=== PATIENT | male | born 1970 | race Caucasian/White ===

== ENCOUNTER 2017-07-27 06:36 | Day surgery (SDC) | payer BC ==
--- NOTE | 2017-07-27 06:10 | History and Physical Report ---
DATE: 07/26/2017. CHIEF COMPLAINT AND HISTORY OF CHIEF COMPLAINT: This patient presents with a history of an intractable lumbar radiculitis. His diagnostics confirm multiple- level hardware fusion of the lumbar spine with pedicle screw and rods 3-4 to 5- 1 and titanium cages at 4-5 and 5-1. Due to the failure of all therapy, he has been referred to this facility by way of the [facility] for consideration of a spinal opioid infusion system or pump. His treatment history has been extensive. There have been multiple pain clinic treatments at multiple different sites. Medications have been complicated producing side effects. He is currently under psychiatry evaluation and management. PAST MEDICAL HISTORY: Attention deficit hyperactivity disorder, cervical and lumbar spondylosis, posttraumatic stress disorder. PAST SURGICAL HISTORY: Cervical spine fusion, lumbar spine fusion. MEDICATIONS ON ADMISSION: To be provided. ALLERGIES: To be provided. PHYSICAL EXAMINATION: General: Height and weight were not evaluated. Vital Signs: Blood pressure 140/80. Musculoskeletal: Current examination shows diffuse tenderness throughout the lumbar spine. Range of motion is difficult and painful producing bilateral low back and lower extremity extensions of pain. His motor and sensory field function to the lower extremities is somewhat difficult. He has generalized weakness. There are sensory field deficits across the front and back surface of both legs. Ambulation is somewhat antalgic, although no assistive device is currently being utilized. Neurologic: Cranial nerves are intact. IMPRESSION: 1. POSTLUMBAR LAMINECTOMY SYNDROME, ICD-10 CODE M96.1. 2. LUMBAR RADICULITIS, ICD-10 CODE M54.16 AND M54.17. PLAN: The patient is here for an implanted spinal catheter infusion trial with hydromorphone to determine if the implantation of a permanent system can be of any value in pain control. The potential risks, side effects, and complications including nerve root injury, spinal cord injury, and spinal headache have been discussed and reviewed. Information including a CD ROM and written information has been provided to the patient and his for review. This is a manager commission's disclosure which also identifies the potential risks, side effects, and all complications. The patient understands and has consented and will move toward the trial. We will consider the trial outpatient, although an overnight stay will be evaluated. An epidural blood patch will be performed which will require the patient to remain flat for four hours and then slowly elevated for one hour. If at that period of time he is stable and wants to go home, he will be discharged. Otherwise, he will stay in the care of the facility, will be managed overnight, and then discharged in the morning. JOB NUMBER: [id number] cc: Dr. Olegario LIAO
[~2017-07-27 06:36] MED LIST: ACETAMINOPHEN 1,000 MG/100 ML BTL IV ONE; FAMOTIDINE 20MG TABLET PO ONE; HYDROMORPHONE PF 2MG/ML AMP 0.004 MG in 0.9 % SODIUM CHLORIDE 10ML VIA 0.998 ML IV ONE; HYDROMORPHONE PF 2MG/ML AMP 2 MG in 0.9 % SODIUM CHLORIDE 500ML 499 ML IV ONE; MECLIZINE 25 MG TABLET PO ONE; METOCLOPRAMIDE 10 MG TABLET PO ONE; VANCOMYCIN HCL 1,000 MG in DEXTROSE 5 % IN WATER 250 ML IVPB ONE
[2017-07-27] MEDS ORDERED: LIDOCAINE 2% MDV (20MG/ML) 20ML VIAL IV ONE (06:37)
[2017-07-27] MEDS ORDERED: MIDAZOLAM HCL 2MG/2ML VIAL IV ONE (06:37)
[2017-07-27] MEDS ORDERED: FENTANYL PF 100MCG/2ML VIAL IV ONE (06:37)
[2017-07-27] MEDS ORDERED: HYDROMORPHONE HCL 2 MG/ML VIAL IV ONE (06:37)
[2017-07-27] MEDS ORDERED: PROPOFOL 10 MG/ML VIAL IV ONE (06:37)
[2017-07-27] MEDS ORDERED: CEFAZOLIN 1G VIAL IM ONE (06:37)
[2017-07-27] MEDS ORDERED: HYDROMORPHONE HCL 1 MG/ML CPJ IM PRN (10:47)
[2017-07-27] MEDS ORDERED: DIPHENHYDRAMINE HCL IV 50 MG/ML VIAL IVP PRN ×2 (10:47)
[2017-07-27] MEDS ORDERED: METOCLOPRAMIDE HCL 10 MG/2 ML VIAL IVP PRN (10:47)
[2017-07-27] MEDS ORDERED: AL HYDROX/MAG HYDROX 30ML UD PO PRN (10:47)
[2017-07-27] MEDS ORDERED: HYDROCODONE/APAP 7.5/325MG TABLET PO PRN ×2 (10:47)
[2017-07-27] MEDS ORDERED: RINGERS SOLUTION,LACTATED 1,000 ML IV SCH (10:47)
[2017-07-27] MEDS ORDERED: ACETAMINOPHEN 325 MG TAB PO PRN ×2 (10:47)
[2017-07-27] MEDS ORDERED: DIPHENHYDRAMINE HCL 25 MG CAPSULE PO PRN ×2 (10:47)
[2017-07-27] MEDS ORDERED: TEMAZEPAM 15 MG CAPSULE PO PRN ×2 (10:47)
[2017-07-27] MEDS ORDERED: METOCLOPRAMIDE 10 MG TABLET PO PRN (10:47)
[2017-07-27] MEDS ORDERED: OXYCODONE/APAP 10MG-325MG TABLET PO PRN ×2 (10:47)
[2017-07-27] MEDS ORDERED: NALOXONE 0.4 MG/1 ML VIAL IVP PRN (10:47)
[2017-07-27] MEDS ORDERED: SENNOSIDES/DOCUSATE SODIUM UD CAPSULE PO PRN ×2 (10:47)
[2017-07-27] MEDS ORDERED: HYDROMORPHONE HCL 2 MG/ML VIAL IM PRN (10:47)
[2017-07-27] MEDS ORDERED: CARBAMAZEPINE 200 MG PO SCH (10:59)
[2017-07-27] MEDS ORDERED: CHLORPROMAZINE 50 MG PO PRN (11:00)
--- NOTE | 2017-07-27 16:07 | Operative Note - Ferro ---
DATE OF SURGERY: 07/27/17 PREOPERATIVE DIAGNOSES: 1. POST LUMBAR LAMINECTOMY SYNDROME, ICD-10 CODE = M96.1. 2. LUMBAR RADICULITIS, ICD-10 CODE = M54.16 AND M54.17. OPERATION: 1. FLUOROSCOPICALLY-GUIDED ACCESS SPINAL SPACE AT L2-3, PLACEMENT OF THIN- WALLED SPINAL CATHETER T11. 2. DIAGNOSTIC MYELOGRAPHY WITH RADIOLOGIC SUPERVISION AND INTERPRETATION. 3. INCISION, SUBCUTANEOUS DISSECTION, AND ANCHORING OF SPINAL CATHETER TO SUPRASPINOUS FASCIA WITH ANCHORING DEVICE AND NONABSORBABLE SUTURE. 4. INCISION, SUBCUTANEOUS DISSECTION, AND CREATION OF A SUBCUTANEOUS POUCH AT RIGHT POSTERIOR GLUTEAL MARGIN FOR PLACEMENT, EVENTUALLY, OF PUMP. 5. TUNNELING BETWEEN SPINAL CATHETER POUCH AND POSTERIOR GLUTEAL POUCH EXITING SKIN, INTERNAL CATHETER INTERFACED BY WAY OF CONNECTOR TO SECOND CATHETER COMPONENT. SECOND CATHETER TUNNELED SUPERIOR 6 CM EXITING SKIN. 6. INTERFACE EXTERNAL CATHETER TO EXTERNAL INFUSION DEVICE SET TO DELIVER HYDROMORPHONE AT 0.04 MG PER DAY. 7. CLOSURE OF MIDLINE SPINAL CATHETER INCISION, VICRYL FOR FASCIA, AND RUNNING SUBCUTICULAR VICRYL FOR SKIN. CLOSURE OF POSTERIOR GLUTEAL MARGIN INCISION WITH NYLON SUTURE. DRESSINGS PLACED. 8. EPIDURAL BLOOD PATCH L3-4, 20 ML AUTOLOGOUS BLOOD DRAWN STERILE TECHNIQUE LEFT ANTECUBITAL. SURGEON: VISHNU BUSTILLO D.O. ANESTHESIA: LOCAL SEDATION. ANESTHESIA PROVIDER: BECKIE MAIER CRNA. INDICATION: This patient presents with a history of intractable post lumbar laminectomy radiculitis. Diagnostics confirming fusion of the lumbar spine at 4- 5 and 5-1. He is here after the failure of all therapy and for a spinal opioid infusion of Hydromorphone to determine if the implantation of a permanent system can be of any value in pain control. PROCEDURE: Intravenous line, vital sign monitoring, IV sedation, prepped and draped in sterile technique. Under imaging, spinal interspace at L2-3 marked, infiltrated. Using AP and lateral imaging, a 20-gauge spinal needle was inserted into the spinal space. With CSF flow, a thin-walled spinal catheter was advanced and positioned T11. Diagnostic myelography was performed to the catheter. The flow characteristics were appropriate in the space. A bolus of Hydromorphone 0.002 mg then given into the spinal space. The catheter was then clamped, skin above and below the needle was infiltrated, incision made, and subcutaneous dissection was conducted to the supraspinous fascia. The needle was removed and a pursestring suture was placed around the catheter to limit CSF flow out the penetration. The catheter was laid flat on the sterile field. CSF was noted coming from the catheter. The catheter was reclamped. At the right posterior gluteal margin; a site eventually picked by the patient for the pump itself, skin infiltrated, incision made, and subcutaneous dissection was conducted to form a small pouch. A tunneling tool was then used to carry the implanted catheter subcutaneously exiting the posterior gluteal pouch. The spinal catheter was then interfaced by way of a connector with a secondary catheter component. This secondary catheter component was tunneled 6 cm superior from this pouch exiting the skin. The interface between the implanted catheter and the external catheter was then placed deep within the pouch. The external catheter was then interfaced to an external pump set to deliver Hydromorphone at 0.04 mg a day. The midline incision was closed with Vicryl for fascia and running subcuticular Vicryl for skin. The posterior pouch was closed with nylon. Dermabond was placed over the midline, Steri's to the posterior pouch. At L3-4, which was one level below the dural puncture, skin infiltrated and an 18-gauge Tuohy needle with [id number] into the epidural space. Simultaneously, 20 mL of autologous blood drawn sterile technique from the left antecubital. An epidural blood patch was then performed with this blood at this level. Needle removed. The Steri-Strips, OpSite, and Medipore tape were then placed over the sites securing the catheter and all connections under sterile dressing. He was transported to the Recovery Room flat, pillow under head and knees, stable showing no side-effects from the procedure or the sedation. In the Recovery Room, he had normal mobility and functionality of his extremities. There was no indication of abnormalities or complications. He will be monitored until stable, flat for four hours, slowly elevated for one, and then evaluated for possible discharge. If not, overnight stay will be evaluated. All other instructions provided, numbers to contact, problems given. We will evaluate him in the next 24-48 hours at home. He will be scheduled for three possible increases in the clinic; first possibly within two to three days depending upon level of pain control. DISCHARGE INSTRUCTIONS IN THE MORNIN. The sites will remain clean and dry. No showering or bathing in any way that disrupts dressings. If it happens, contact the clinic. 2. Standard medications resumed including Levaquin, the antibiotic, 500 mg once a day for 14 days. 3. Spinal opioid side-effects including respiratory depression, nausea, vomiting , constipation, urinary retention, lightheadedness, or rash have all been discussed and reviewed. Should they take place, he is to contact the clinic or go to a local Emergency Room. 4. The trial will run 14 days. At the end of the 14 day period, we will either implant the device, the permanent pump reservoir, or remove the implanted spinal catheter. All other complications, potential risks, and numbers to contact have been given. cc: Dr. Quique Harmon JOB NUMBER: [id number] MTDD
[2017-07-27] MEDS ORDERED: VANCOMYCIN HCL 1,000 MG in DEXTROSE 5 % IN WATER 250 ML IVPB ONE ×2 (19:20)
[2017-07-27] MEDS ORDERED: OLANZAPINE 5 MG PO SCH (22:00)
--- NOTE | 2017-07-28 09:25 | RADIOLOGY REPORT ---
EXAM: THORACOLUMBAR SPINE, ONE VIEW HISTORY: PAIN PUMP TRIAL. TECHNIQUE: An AP view of the spine was obtained including the lower thoracic and lumbar portions of the spine. Comparison: Intraoperative radiographs of the spine dated 07/27/17 at 08:56. FINDINGS: An interspinal catheter is in place, likely entering the canal at the L3 level. The tip of the catheter projects at the superior aspect of the T12 vertebral body. The catheter extends rightward and inferiorly to the gluteal level. There are mild to moderate degenerative changes throughout the lumbar spine. Fixation hardware is in place with posterior fusion of L4 through S1. IMPRESSION: INTERSPINAL CATHETER IN PLACE, DESCRIBED ABOVE WITH ITS TIP PROJECTING AT THE UPPER T12 VERTEBRAL BODY LEVEL. JOB NUMBER: [id number] MTDD
== END 2017-07-27 16:05 | disposition home or self-care (01) ==
LOC: SUR 06:36 → MEDSURG 10:14 → SUR 16:05
PROVIDERS: ATTEND Pain Medicine Interventional Pain Medicine
DX: M96.1 Postlaminectomy syndrome, not elsewhere classified (principal); M54.16 Radiculopathy, lumbar region; M54.17 Radiculopathy, lumbosacral region; F43.10 Post-traumatic stress disorder, unspecified
CPT/HCPCS: 62350; 00630; 72020; Q9967; J3370; J3010; J1170 ×2; J0690; J7040; J7050; J7060

== ENCOUNTER 2017-08-10 11:04 | Day surgery (SDC) | payer BC ==
--- NOTE | 2017-08-10 05:16 | History and Physical Report ---
DATE: 08/09/2017. CHIEF COMPLAINT AND HISTORY OF CHIEF COMPLAINT: This patient is here with an ongoing implanted spinal catheter infusion trial with hydromorphone. He has achieved up to greater than 75 percent pain control. Due to the failure of all other therapies and the success of the implanted catheter infusion trial with hydromorphone, he is here at his request for implantation of a permanent system. PAST MEDICAL HISTORY: Attention deficit hyperactivity disorder, cervical lumbar spondylosis, posttraumatic stress disorder. PAST SURGICAL HISTORY: Cervical spine fusion, lumbar spine fusion. MEDICATIONS ON ADMISSION: To be provided. ALLERGIES: To be provided. PHYSICAL EXAMINATION: General: Height and weight are not known. Vital Signs: Unavailable. HEENT: Within normal limits. Lungs: Clear. Heart: Regular rate and rhythm. Abdomen: Nontender. Musculoskeletal: Dressings are in place for the implanted spinal catheter infusion trial. The pain pattern is diffuse in the upper and lower extremities. Neurologic: Cranial nerves are intact. IMPRESSION: 1. INTRACTABLE POSTLUMBAR LAMINECTOMY RADICULITIS, ICD-10 CODE M96.1. 2. LUMBAR RADICULITIS, ICD-10 CODE M54.16 AND M54.17. PLAN: The patient is here having completed an implanted catheter infusion trial successfully with 75 to 85 percent pain control. He is here for implantation of a permanent system. We will consider the procedure outpatient, although an overnight stay will be evaluated. JOB NUMBER: [id number] cc: Blake Lawrence M.D. MTDD
[~2017-08-10 11:04] MED LIST changes: +HYDROMORPHONE HCL 0.02 GM in 0.9 % SODIUM CHLORIDE 10ML VIA 20 ML IV ONE; +HYDROMORPHONE HCL/PF 0.002 MG in 0.9 % SODIUM CHLORIDE 10ML VIA 0.998 ML IVP ONE; -HYDROMORPHONE PF 2MG/ML AMP 0.004 MG in 0.9 % SODIUM CHLORIDE 10ML VIA 0.998 ML IV ONE; -HYDROMORPHONE PF 2MG/ML AMP 2 MG in 0.9 % SODIUM CHLORIDE 500ML 499 ML IV ONE; +VANCOMYCIN HCL 1,000 MG in 0.9 % SODIUM CHLORIDE 250ML 250 ML IVPB ONE; -VANCOMYCIN HCL 1,000 MG in DEXTROSE 5 % IN WATER 250 ML IVPB ONE
[2017-08-10] MEDS ORDERED: MIDAZOLAM HCL 2MG/2ML VIAL IV ONE (11:05)
[2017-08-10] MEDS ORDERED: FENTANYL PF 100MCG/2ML VIAL IV ONE (11:05)
[2017-08-10] MEDS ORDERED: CEFAZOLIN 1G VIAL IM ONE (11:05)
[2017-08-10] MEDS ORDERED: BUPIVACAINE 0.75% W/EPI MPF 30ML VIAL IVP ONE (11:05)
[2017-08-10] MEDS ORDERED: LIDOCAINE 1% W/EPI 1:200,000 MPF 30ML SQ ONE (11:05)
[2017-08-10] MEDS ORDERED: PROPOFOL 10 MG/ML VIAL IV ONE (11:05)
[2017-08-10] MEDS ORDERED: LIDOCAINE 2% MDV (20MG/ML) 20ML VIAL IV ONE (11:05)
[2017-08-10] MEDS ORDERED: *PACU ONLY* KETAMINE HCL 10 MG/ML (20ML) VIAL IV ONE (11:05)
--- NOTE | 2017-08-11 08:15 | Operative Note - Ferro ---
DATE OF SURGERY: 08/10/2017. PREOPERATIVE DIAGNOSIS: 1. POSTLUMBAR LAMINECTOMY SYNDROME, ICD-10 CODE M96.1. 2. LUMBAR RADICULITIS, ICD-10 CODE M54.16 AND M54.17. 3. IMPLANTED SPINAL CATHETER INFUSION TRIAL WITH HYDROMORPHONE. POSTOPERATIVE DIAGNOSIS: 1. POSTLUMBAR LAMINECTOMY SYNDROME, ICD-10 CODE M96.1. 2. LUMBAR RADICULITIS, ICD-10 CODE M54.16 AND M54.17. 3. IMPLANTED SPINAL CATHETER INFUSION TRIAL WITH HYDROMORPHONE. OPERATION: 1. Incision, subcutaneous dissection, and removal of external spinal catheter. 2. Revision of internal spinal catheter, interface to second catheter component with connector to interface to pump. 3. Incision, subcutaneous dissection, and creation of subcutaneous pouch at right posterosuperior gluteal margin for placement of pump identified as a Medtronic 20 mL programmable prefilled with hydromorphone 1.0 mg per mL. 4. Placement of the pump into pouch, interfaced with revised catheter, securing pump to posterior fascia using nonabsorbable suture. 5. Placement of 24-gauge Diaz needle into access port for programmable pump. Aspiration and clearing catheter of 1.0 mL of opioids and cerebrospinal fluid mixture. 6. Diagnostic myelography with radiologic supervision and interpretation confirming catheter component functionality. 7. Programming of pump to deliver by continuous infusion hydromorphone at 0.08 mg per day. 8. Closure of incisions with Vicryl for the fascia and running subcuticular Vicryl for the skin. Dermabond closure. SURGEON: Sudhakar Pichardo D.O. ANESTHESIA: Local sedation. ANESTHESIA PROVIDER: Edd Garcia CRNA. INDICATION: This patient presents with a postlaminectomy radiculitis. Due to the failure of all therapy, an implanted spinal catheter infusion trial with hydromorphone was conducted with 75 to 80 percent pain control. The patient is here by his request for full implantation. DESCRIPTION OF PROCEDURE: Intravenous line, vital sign monitoring, and intravenous sedation. Prepped and draped with sterile technique. The patient was positioned prone. All of the dressings were removed. The externalized catheter was clamped, and the external pump was removed from the field. Under imaging the pouch created subcutaneously for the pump at the right posterior gluteal margin was marked and the skin was infiltrated. An incision was made, and subcutaneous dissection was conducted to form a pouch of suitable size and depth for the pump identified as a Medtronic 20 mL programmable. The external catheter interfaced to the internal catheter was identified. The connector was cut, and the externalized catheter was removed, pulling out and away from the incision. The cut internal catheter was then revised, resected, and interfaced with a new second catheter component by way of a connector. This would interface to the pump. A new pump was placed onto the field filled with hydromorphone at 1.0 mg per mL. Antibiotic irrigation and Bovie for hemostasis. The revised catheter was then interfaced to the pump. The pump was placed into the pouch and secured to the posterior fascia using a nonabsorbable suture and a pump eyelet. A 24-gauge Diaz needle was inserted into the access port, and then 1.0 mL of catheter contents was aspirated, clearing the catheter of opioid and cerebrospinal fluid mixture. Diagnostic myelography was then performed under radiologic supervision and interpretation. Contrast flow characteristics were appropriate for the space. There were no leaks, bends, or kinks noted in the internal catheter or the external catheter. The spinal catheter in the spinal space at T12-L1 showed appropriate flow characteristics. When the catheter was cleared at the access port, cerebrospinal fluid mixture with the opioid was noted. With the pump in the pouch, the pouch was closed with Vicryl for the fascia and running subcuticular Vicryl for the skin. Dermabond closure. The pump was then programmed to deliver by continuous infusion hydromorphone at 0.08 mg per day. He was transported to the recovery room stable, showing no side effects from the procedure or the sedation. When fully awake and alert, he will be prepared for discharged. DISCHARGE INSTRUCTIONS: 1. The sites are to remain clean and dry, although Dermabond will allow showering in 24 hours. 2. Standard medications are to be resumed including Levaquin the antibiotic 500 mg once a day for 14 days. 3. Analgesics should be tapered but managed to help with the incision pain. 4. Spinal opioid side effects were discussed including respiratory depression, nausea, vomiting, constipation, urinary retention, lightheadedness, and rash have been discussed. 5. He will be seen in the office in five to seven days. Through this period of time, his activity should stay low. 6. All other instructions were provided and numbers to contact with problems were given. He will be discharged. JOB NUMBER: [id number] cc: Blake Lawrence M.D. MTDD
--- NOTE | 2017-08-11 09:07 | RADIOLOGY REPORT ---
EXAM: LUMBAR SPINE, SINGLE VIEW HISTORY: PAIN PUMP INSERTION. TECHNIQUE: A single frontal view of the lumbar spine was performed. Comparison: 07/27/17. FINDINGS: A medication infusion pump is present with the tubing extending to the T11-T12 level. There is mild chronic compression of the L1 vertebral body which is unchanged. Post surgical changes are present within the lumbosacral spine. IMPRESSION: MEDICATION INFUSION PUMP IN PLACE WITH THE TUBING EXTENDING TO THE T11-T12 LEVEL. JOB NUMBER: [id number] MTDD
== END 2017-08-10 14:50 | disposition home or self-care (01) ==
LOC: SUR 11:04
PROVIDERS: ATTEND Pain Medicine Interventional Pain Medicine
DX: M54.16 Radiculopathy, lumbar region (principal); M54.17 Radiculopathy, lumbosacral region
CPT/HCPCS: 62367; 72020; 62350; 62362; 00630; Q9967; J3370; J1170; J3010; J3490; C1755; J0690; J7050